=== PATIENT | female | born 2000 | race Caucasian/White ===

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

== ENCOUNTER 2022-09-21 04:59 | Inpatient (IN) | payer OTHER ==
[~2022-09-21] VITALS: Ht 162.6 cm; Wt 73.1 kg
[2022-09-21] VITALS (16 sets, daily range): BP systolic 138–178; BP diastolic 75–96
[2022-09-21 06:03] LABS: BASOPHILS ABSOLUTE AUTO 0.02 K/mm3 (0.00-0.23); BASOPHILS PERCENT AUTO 0 % (0-2); EOSINOPHILS ABSOLUTE AUTO 0.01 K/mm3 (0.00-0.68); EOSINOPHILS PERCENT AUTO 0 % (0-6); Hematocrit 23.2 % (33.0-51.0); Hemoglobin 6.9 g/dL (11.5-16.0); IMMATURE GRAN ABSOLUTE AUTO 0.11 K/mm3 (0.00-0.10); IMMATURE GRAN PERCENT AUTO 1 % (0-1); LYMPHOCYTES ABSOLUTE AUTO 2.26 K/mm3 (0.84-5.20); LYMPHOCYTES PERCENT AUTO 20 % (21-46); MONOCYTES ABSOLUTE AUTO 0.52 K/mm3 (0.16-1.47); MONOCYTES PERCENT AUTO 5 % (4-13); Mean Corpuscular HGB Conc 29.7 g/dL (31.5-36.5); Mean Corpuscular Volume 61 fL (80-100); Mean Platelet Volume 8.5 fL (9.1-12.4); NEUTROPHILS ABSOLUTE AUTO 8.15 K/mm3 (1.96-9.15); NEUTROPHILS PERCENT AUTO 74 % (41-73); NRBC ABSOLUTE 0.03 K/mm3 (0.00-0.02); NRBC Auto 0.3 /100 WBC (0.0-0.2); Platelet Count 353 K/mm3 (150-400); RDW Coefficient Variation 18.7 % (11.7-14.2); RDW Standard Deviation 39.3 fL (35.1-46.3); Red Blood Cell Count 3.83 M/mm3 (3.80-5.20); White Blood Cell Count 11.07 K/mm3 (4.00-11.30)
--- NOTE | 2022-09-21 11:04 | NUR ---
B/P UP PATIENT JUST WALKING AROUND AND SHOWERING STATES DAILY METH USER SMOKES IT, BACK IN BED, INSTRUCTED OF HAZARDS OF DRUG USE AND SMOKING CIGARETTES, WAS INSTRUCTED SHE CAN NOT GO OUT SIDE PER HOSPITAL POLICY, NO IGNITING PRODUCTS IN ROOM PER PATIENT
--- NOTE | 2022-09-21 11:07 | NUR ---
1045 instructed patient on fire saftey. no lighters, matches or ignition sources to be in room, patient cannot go outside for any reason. offered nicotine patch to patient if she desires one
--- NOTE | 2022-09-21 12:45 | NUR ---
ASSUMED CARE REPT FROM A CATINA RN PT SLEEPING AWAKENED REVIEWED FIRE SAFETLY POLICY AND NO SMOKING IN HOSPITAL OR ON CAMPUS GROUNDS, PT VERBALIZED UNDERSTANDING EXAMINED PT LEFT LEG, SLIGHTLY SWOLLEN +1 PEDAL EDEMA FAINT PEDAL PULSE FELT, PT DENIES PAIN OR TENDERNESS WHEN FLEXING FOOT FORWARD AND BACKWARDS
--- NOTE | 2022-09-21 14:00 | NUR ---
ENCOURAGE PT TO GO DOWN TO VISIT NB IN [place], PT DECLINED
--- NOTE | 2022-09-21 16:30 | NUR ---
PT SLEEPING DIFFICULTY WAKING UP RN HAVING TO IT TECHNICIAN HER THE ENTIRE TIME ie EDINSON MOVE YOUR LEG TO EDGE OF BED, EDINSON STAND UP EDINSON SIT ON TOILET, WHILE IN BATHROOM PT PASSED 2 LARGE BLOOD CLOTS (174ML) PT UNABLE TO VOID, ASSISTED WITH NINI CARE, PT NOT COMMUNICATING VERY WELL AND STILL HAS TO BE PROMPTED TO WALK SIT PULL UP UNDERWEAR, PT BACK TO BED, DR MONTELONGO NOTIFIED, ORDERS RECEIVED, ALVARADO CATHETER PLACED DRAINED 500 CC DARK ARIADNA URINE WITH STRONG ODOR, URINE DDRUG TOX COLLECTED AT THIS TIME AND TAKEN TO LAB, REFILLED WATER CUP ENCOURAGED TO DRINK ENTIRE CUP OVER THE NEXT HOUR , PT WENT BACK TO SLEEP.
--- NOTE | 2022-09-21 19:01 | NUR ---
REPT TO PM SHIFT
--- NOTE | 2022-09-21 20:00 | NUR ---
PT AND SO ARE ADVISED OF NO [facility] STORAGE ARCHITECT OR IGNITION SOURCES ALLOWED IN THE HOSPITAL.
[2022-09-21 21:21] LABS: U Amphetamine Screen DETECTED; U Barbituate Screen Not Detected; U Benzodiazapine Screen Not Detected; U Buprenorphine Screen Not Detected; U Cannabinoids Screen Not Detected; U Cocaine Screen Not Detected; U Methadone Screen Not Detected; U Methamphetamine Screen DETECTED; U Opiates Screen Not Detected; U Oxycodone Screen Not Detected; U Phencyclidine Screen Not Detected; U Propoxyphene Screen Not Detected
[2022-09-21 23:09] LABS: U Amphetamine Screen DETECTED; U Barbituate Screen Not Detected; U Benzodiazapine Screen Not Detected; U Buprenorphine Screen Not Detected; U Cannabinoids Screen Not Detected; U Cocaine Screen Not Detected; U Methadone Screen Not Detected; U Methamphetamine Screen DETECTED; U Opiates Screen Not Detected; U Oxycodone Screen Not Detected; U Phencyclidine Screen Not Detected; U Propoxyphene Screen Not Detected
[2022-09-22] VITALS (28 sets, daily range): BP systolic 128–159; BP diastolic 76–105
[2022-09-22 05:48] LABS: Hematocrit 18.1 % (33.0-51.0); Mean Corpuscular HGB 18.3 pg (26.0-34.0); Mean Corpuscular HGB Conc 29.3 g/dL (31.5-36.5); Mean Corpuscular Volume 63 fL (80-100); Mean Platelet Volume 8.6 fL (9.1-12.4); NRBC ABSOLUTE 0.11 K/mm3 (0.00-0.02); NRBC Auto 0.6 /100 WBC (0.0-0.2); Platelet Count 320 K/mm3 (150-400); RDW Coefficient Variation 18.8 % (11.7-14.2); RDW Standard Deviation 40.9 fL (35.1-46.3); Red Blood Cell Count 2.89 M/mm3 (3.80-5.20); White Blood Cell Count 17.74 K/mm3 (4.00-11.30)
[2022-09-22 05:54] LABS: Hemoglobin 5.3 g/dL (11.5-16.0)
[2022-09-22 06:57] LABS: BAND PERCENT MAN 1 % (0-8); BASOPHILS PERCENT MAN 0 % (0-2); EOSINOPHILS PERCENT MAN 0 % (0-6); LYMPHOCYTES ABSOLUTE MAN 6.56 K/mm3 (0.84-5.20); LYMPHOCYTES PERCENT MAN 37 % (21-46); MONOCYTES ABSOLUTE MAN 0.17 K/mm3 (0.16-1.47); MONOCYTES PERCENT MAN 1 % (4-13); NEUTROPHILS ABSOLUTE MAN 10.99 K/mm3 (1.96-9.15); SEG NEUTROPHILS PERCENT MAN 61 % (41-73); TOTAL CELLS COUNTED 100
--- NOTE | 2022-09-22 07:00 | NUR ---
PT AND SO REMINDED NO SMOKING OR USE OF LIGHTERS IN HOSPITAL AT ANYTIME AND [facility] IS A NON SMOKING CAMPUS
[2022-09-22 08:11] LABS: HBSAG SCREEN Negative (Negative); HIV AB/P24 AG SCREEN Non Reactive (Non Reactive)
--- NOTE | 2022-09-22 08:31 | NUR ---
0825 SECOND UNIT OF BLOOD ANSHUL, PT TOLERATING WELL
--- NOTE | 2022-09-22 08:40 | NUR ---
TANIA DALTON FOR CPS HER TO VISIT WITH PATIENT AND FOB
[2022-09-22 12:31] LABS: Albumin, Blood 1.8 g/dL (3.4-5.0); Albumin/Globulin Ratio 0.6 (0.8-1.8); Bilirubin, Total 0.8 mg/dL (0.1-1.0); Bun/Creatinine Ratio 11.2 (12.0-20.0); Calcium, Blood 7.9 mg/dL (8.5-10.1); Creatinine, Blood 0.54 mg/dL (0.40-1.00); Total Protein, Blood 4.8 g/dL (6.4-8.2)
[2022-09-22 13:03] LABS: Hematocrit 23.6 % (33.0-51.0); Hemoglobin 7.3 g/dL (11.5-16.0)
--- NOTE | 2022-09-22 14:33 | NUR ---
PT LYING IN BED WHEN ASKED IF SHE REMEMBERS DR SOUSA IN ROOM AT LUNCH HOUR, PT DENIES,WHEN ABOUT PRIOR PP DEPRESSION OR ANY DEPRESSION ISSUES STATES SHE HAD PP DEPRESSION BUT WAS NOT TREATED WITH MEDICATION WHEN ASKED WHAT HELPED HER "NOTHING" WAS HER ANSWER PT VERY FLAT AFFECT DOES NOT MAKE EYE CONTACT, DENIES PAIN AT THIS TIME. RN TOLD PT DR SOUSA WOULD BE BACK BY AFTER OFFICE HOURS TO VISIT WITH HER AND RECOMMEND PT TO DISCUSS POSSIBLE PP DEPRESSION TREATMENT OPTIONS, PT DID NOT RESPOND. PHONE NUMBER TO [employer] WRITTEN ON WHITE BOARD ON AGAINN RN ENCOURAGED PT TO CALL FOR UPDATE
--- NOTE | 2022-09-22 17:00 | NUR ---
P/C FROM DR HERNANDEZ, SHE IS ON HER WAY TO SEE PT WOULD LIKE TO HAVE HER AWAKE TO BE EXAMINED, FOB OUT OF ROOM, PT SLEEPING AWAKED EASIER THIS EVENING, DINNER TRAY PASSED, LIGHTS ON PT UP TO BATHROOM SELF PERICARE DONE, BACK TO BED TO START DINNER,
--- NOTE | 2022-09-22 17:25 | NUR ---
DR HERNANDEZ AT BEDSIDE
--- NOTE | 2022-09-22 17:40 | NUR ---
FOB BACK IN ROOM
--- NOTE | 2022-09-22 18:56 | NUR ---
STABLE PT LYING IN BED PLANS TO SHOWER AT BEDTIME, FOB LEFT UNIT BUT PLANS TO RETURN, REPT TO PM SHIFT
[2022-09-23 02:46] VITALS: BP 137/82
[2022-09-23 07:22] VITALS: BP 139/87
[2022-09-23] MEDS ORDERED: NIFE30ER PO (07:46)
[2022-09-23] MEDS ORDERED: SERT50 PO (07:46)
[2022-09-23 08:30] LABS: Hematocrit 26.5 % (33.0-51.0); Hemoglobin 8.2 g/dL (11.5-16.0); Mean Corpuscular HGB 20.8 pg (26.0-34.0); Mean Corpuscular HGB Conc 30.9 g/dL (31.5-36.5); Mean Corpuscular Volume 67 fL (80-100); Mean Platelet Volume 8.4 fL (9.1-12.4); NRBC ABSOLUTE 0.27 K/mm3 (0.00-0.02); NRBC Auto 1.4 /100 WBC (0.0-0.2); Platelet Count 365 K/mm3 (150-400); RDW Coefficient Variation 24.3 % (11.7-14.2); RDW Standard Deviation 55.9 fL (35.1-46.3); Red Blood Cell Count 3.95 M/mm3 (3.80-5.20); White Blood Cell Count 19.02 K/mm3 (4.00-11.30)
[2022-09-23 09:04] LABS: BAND PERCENT MAN 2 % (0-8); BASOPHILS PERCENT MAN 0 % (0-2); EOSINOPHILS PERCENT MAN 0 % (0-6); LYMPHOCYTES PERCENT MAN 30 % (21-46); METAMYELOCYTE ABSOLUTE MAN 0.19 K/mm3 (0.00-0.00); METAMYELOCYTE PERCENT MAN 1 % (0-0); MONOCYTES ABSOLUTE MAN 0.57 K/mm3 (0.16-1.47); MONOCYTES PERCENT MAN 3 % (4-13); MYELOCYTE ABSOLUTE MAN 0.57 K/mm3 (0.00-0.00); MYELOCYTE PERCENT MAN 3 % (0-0); NEUTROPHILS ABSOLUTE MAN 11.98 K/mm3 (1.96-9.15); SEG NEUTROPHILS PERCENT MAN 61 % (41-73); TOTAL CELLS COUNTED 100
[2022-09-23 09:25] LABS: Source, Urine Straight Cath
[2022-09-23 09:30] LABS: Appearance, Urine Hazy (Clear); Bilirubin, Urine Neg (Neg); Blood, Urine 2+ (Neg); Glucose Qualitative, Urine Neg (Neg); Ketones, Urine Neg (Neg); Leukocyte Esterase, Urine Neg (Neg); Nitrite, Urine Neg (Neg); Protein, Urine Neg (Neg); Urobilinogen, Urine NORM (Normal)
[2022-09-23 09:31] LABS: Color, Urine Pale Yellow (P-Yellow)
[2022-09-23 09:42] LABS: Red Blood Cells, Urine 0-2 /hpf (0-2)
[2022-09-23 09:43] LABS: Bacteria Many /hpf; Squamous Epithelial Cells Rare /hpf (Few)
[2022-09-23 09:44] LABS: Transitional Epithelial Cells Rare /hpf (0-Rare)
[2022-09-23] MEDS ORDERED: NITR100CA PO (09:44)
[2022-09-23 09:59] VITALS: BP 138/94
--- NOTE | 2022-09-23 10:22 | NUR ---
PT GIVEN WRITTEN AND VERBAL D/C INSTRUCTIONS. REITERATED NEED TO LOGISTICS PROJECT MANAGER RX FROM [facility] BY 1300. NICTOINE PATCH REMOVED.
--- NOTE | 2022-09-27 10:13 | NUR ---
THIS RN ATTEMPTED TO CONTACT PATIENT TO DO PPFU OVER PHONE. PHONE RANG 4 TIMES THEN SWITCHED OVER TO A BUSY SIGNAL. RN UNABLE TO LEAVE VOICE MAIL.
== END 2022-09-23 10:45 | disposition home or self-care (01) | DRG 806 ==
LOC: OBS 04:59 → BC 05:03 → OBS 05:13 → BC 05:14
PROVIDERS: Family Medicine; Obstetrics & Gynecology; ADMIT Obstetrics & Gynecology
PROC: 10E0XZZ Delivery of Products of Conception, External Approach (ICD-10-PCS; principal; 2022-09-21)
PROC: 30233N1 Transfusion of Nonautologous Red Blood Cells into Peripheral Vein, Percutaneous Approach (ICD-10-PCS; 2022-09-21)
DX: O16.4 Unspecified maternal hypertension, complicating childbirth (principal); D62 Acute posthemorrhagic anemia; Z37.0 Single live birth; O99.334 Smoking (tobacco) complicating childbirth; O99.324 Drug use complicating childbirth; F17.210 Nicotine dependence, cigarettes, uncomplicated; F15.10 Other stimulant abuse, uncomplicated; O77.0 Labor and delivery complicated by meconium in amniotic fluid; O99.345 Other mental disorders complicating the puerperium; F32.A Depression, unspecified; O90.81 Anemia of the puerperium; O71.82 Other specified trauma to perineum and vulva; B96.20 Unspecified Escherichia coli [E. coli] as the cause of diseases classified elsewhere; Z88.0 Allergy status to penicillin; Z3A.37 37 weeks gestation of pregnancy
CPT/HCPCS: 36415; 36430; 51702; 80053; 81001; 85014; 85018; 85025; 86317; 86592; 86762; 86850; 86900; 86901; 86923; 87077; 87086; 87186; 87340; 87389; 90471; 90707; A9270; G0480; J1885; J2590; J2916; J7040; J7120; P9016

== ENCOUNTER 2022-12-27 01:33 | Day surgery (SDC) | payer OTHER ==
[~2022-12-27 01:33] MED LIST: CEFTRIAXONE2 G1 IV; HYDHCL25 PO; LISI20 PO; NIFE30ER PO; NITR100CA PO; SERT50 PO; SULTRIDS PO; VISBIOME 112.51 EACH PO
[2022-12-27 17:18] VITALS: BP 122/83
== END 2022-12-27 23:54 | disposition home or self-care (01) ==
LOC: ATC 01:33
DX: M00.9 Pyogenic arthritis, unspecified (principal); F17.210 Nicotine dependence, cigarettes, uncomplicated; I10 Essential (primary) hypertension; M65.841 Other synovitis and tenosynovitis, right hand
CPT/HCPCS: 96365; J0696

== ENCOUNTER 2022-12-28 08:02 | Day surgery (SDC) | payer OTHER ==
[2022-12-28 16:04] VITALS: BP 111/83
== END 2022-12-28 16:26 | disposition home or self-care (01) ==
LOC: ATC 08:02
DX: M00.9 Pyogenic arthritis, unspecified (principal); M65.841 Other synovitis and tenosynovitis, right hand; F15.90 Other stimulant use, unspecified, uncomplicated; F17.210 Nicotine dependence, cigarettes, uncomplicated; I10 Essential (primary) hypertension; Z88.0 Allergy status to penicillin
CPT/HCPCS: 96365; J0696